=== PATIENT | male | born 1960 | race Caucasian/White ===

== ENCOUNTER 2024-09-12 10:23 | Observation (INO) ==
--- NOTE | 2024-09-12 10:41 | Emergency Department Note ---
HPI - General Adult General Chief complaint: Arrhythmia/Palpitations Stated complaint: RAPID HEARTBEAT Time Seen by Provider: 09/12/24 10:34 Source: patient Mode of arrival: walk-in Limitations: no limitations History of Present Illness HPI narrative: This is a 64 year old male patient that presents to the ER with c/o his heart beating fast. patient states he has a hx of SVT and afib and is on eliquis. patient denies any chest pain, back pain, fever, chills, SOB, abdominal pain, cough, congestion or N/V/D Onset (ago): hour(s) (2) Associated symptoms: Reports denies other symptoms Treatments prior to arrival: Reports none Related Data Home Medications Medication Instructions Recorded Confirmed albuterol sulfate 2.5 mg/0.5 mL 2.5 mg inhalation Q6H PRN 07/13/24 07/20/24 solution for nebulization shortness of breath or wheezing atorvastatin 40 mg tablet 40 mg PO BEDTIME 07/13/24 07/20/24 carbamazepine 200 mg tablet 200 mg PO BID 07/13/24 07/20/24 clopidogrel 75 mg tablet 75 mg PO DAILY 07/13/24 07/20/24 diazepam 5 mg tablet 5 mg PO BID 07/13/24 07/20/24 fluticasone fur. 100 mcg-umeclid 1 inh inhalation DAILY 07/13/24 07/20/24 62.5 mcg-vilant 25 mcg inhalat.powder (Trelegy Ellipta) fluticasone propionate 50 1 spray intranasal Q12H 07/13/24 07/20/24 mcg/actuation nasal spray,suspension ipratropium 0.5 mg-albuterol 3 mg 3 ml inhalation QID PRN shortness 07/13/24 07/20/24 (2.5 mg base)/3 mL nebulization of breath soln olmesartan 20 mg tablet 20 mg PO DAILY 07/13/24 07/20/24 pantoprazole 40 mg tablet,delayed 40 mg PO DAILY 07/13/24 07/20/24 release Previous Rx's Medication Instructions Recorded albuterol sulfate 90 mcg/actuation 2 puff inhalation Q6H PRN 07/13/24 aerosol inhaler (Ventolin HFA) shortness of breath or wheezing #8.5 grams ketorolac 10 mg tablet 10 mg PO Q6H PRN pain #20 tabs 07/13/24 methylprednisolone 4 mg tablets in See Rx Instructions PO .COMPLEX 07/13/24 a dose pack (Medrol (Deyvi)) Inflammation #21 ea apixaban 2.5 mg tablet (Eliquis) 5 mg (2 x 2.5 mg) PO BID SVT #60 07/21/24 tabs diltiazem HCl 120 mg 120 mg PO BID svt/htn #60 caps 07/21/24 capsule,extended release 12 hr Allergies Allergy/AdvReac Type Severity Reaction Status Date / Time No Known Drug Allergies Allergy Verified 09/12/24 10:44 Review of Systems Status of ROS 10 or more systems reviewed and unremark able except as noted in history and below Constitutional Denies: fever, chills, change in weight, fatigue or malaise Eyes Denies: change in vision, blurry vision, blind spots or light sensitivity Ears, nose, mouth, and throat Denies: throat pain, neck pain, throat swelling or difficulty swallowing Cardiovascular Reports: other (rapid heartbeat); Denies: chest pain, palpitations, edema, swelling of feet/ankles or lightheadedness Respiratory Denies: shortness of breath, cough, wheezing, stridor or pain on inspiration Gastrointestinal Denies: abdominal pain, nausea, vomiting, coffee grounds in vomit, heartburn or diarrhea Genitourinary Denies: painful urination, urinary frequency, urinary urgency or blood in urine Musculoskeletal Denies: back pain, neck pain, extremity pain or extremity swelling Integumentary/Breast Denies: rash, itching, redness, skin pain, skin tenderness, skin swelling, change in hair or breast pain Neurological Denies: headache, numbness in extremities or weakness in extremities Psychiatric Denies: anxiety, mood swings, panic attacks, change in sleep pattern or hopelessness Endocrine Denies: excessive urination, excessive thirst, fatigue, cold intolerance or excessive sweating Allergic/Immunologic Denies: hives, throat swelling, tongue swelling or facial swelling [facility] Medical History (Updated 07/29/24 @ 00:00 by ) Paroxysmal atrial fibrillation with RVR New onset atrial fibrillation GERD with esophagitis HLD (hyperlipidemia) Seizure disorder COPD (chronic obstructive pulmonary disease) CAD (coronary artery disease) HTN (hypertension) Surgical History History of heart artery stent Social History Smoking status: never smoker Within the past year, how often did you have a drink containing alcohol: never Score interpretation: A score less than 4 is consistent with normal alcohol consumption. Non-prescribed substance use: denies use Problems where you live: no known problems Highest level of school completed/degree received: high school Life stressor details: Current medical condition Due to disability, difficulty making decisions: No Exam Constitutional: normal general appearance and no apparent distress Vital Signs - 24 hr 09/12/24 10:29 09/12/24 11:00 09/12/24 11:06 Temperature 97.5 F L Pulse Rate 163 H 139 H 66 Respiratory Rate 22 Blood Pressure 137/93 137/93 Pulse Oximetry 90 L Oxygen Delivery Me thod Nasal Cannula Oxygen Flow Rate 3 HENMT: normocephalic, head/scalp atraumatic, hearing grossly normal bilaterally, external ears normal, nasal mucous membranes normal, external nose normal, oral mucous membranes normal and oropharynx normal Eyes: PERRL, EOMs intact bilaterally, conjunctivae normal and no scleral icterus Neck/C-Spine: visual inspection normal and trachea midline Lymph: no lymphadenopathy noted Chest: inspection of chest normal Respiratory: breath sounds equal bilaterally, normal respiratory effort, clear to auscultation bilaterally, no wheezes, no rales, no retractions and no use of accessory muscles Cardiovascular: heart rate abnormal (tachycardic), no gallop, no rub, no murmur, no JVD, no clicks, peripheral pulses 2+ throughout and no additional abnormal heart sounds Gastrointestinal: abdomen normal to inspection, abdomen soft to palpation, nontender to palpation, nontender to percussion, nondistended, normoactive bowel sounds, no hepatosplenomegaly, no masses, no pulsatile mass, no ascites and no hernia Back/Pelvis: spine normal to inspection Extremities: normal to inspection, normal to palpation, no tenderness, full ROM, no joint enlargement and no deformity Neurology: no movement abnormality noted, speech normal, coordination normal, no fasciculations noted and GCS normal Psychiatry: mental status grossly normal, oriented x3, thought process normal and cooperative Skin: skin color normal Course Course Hospital Course: 1117: VSS, HR 74bpm, no s/s of acute distress noted. Due to rapid HR earlier and low sodium level, will admit patient to the hospital Vital Signs Vital signs: Vital Signs Temperature 97.5 F L 09/12/24 10:29 Pulse Rate 163 H 09/12/24 10:29 Respiratory Rate 22 09/12/24 10:29 Blood Pressure 137/93 09/12/24 10:29 Pulse Oximetry 90 L 09/12/24 10:29 Oxygen Delivery Method Nasal Cannula 09/12/24 10:29 Oxygen Flow Rate 3 09/12/24 10:29 Temperature 97.5 F L 09/12/24 10:29 Pulse Rate 66 09/12/24 11:06 Respiratory Rate 22 09/12/24 10:29 Blood Pressure 137/93 09/12/24 11:00 Pulse Oximetry 90 L 09/12/24 10:29 Oxygen Delivery Method Nasal Cannula 09/12/24 10:29 Oxygen Flow Rate 3 09/12/24 10:29 Medical Decision Making Differential Diagnosis Differential Diagnosis: viral illness Medical Records Medical records reviewed: Yes I reviewed the patient's medical records Lab Data Lab results reviewed: Yes I reviewed the patient's lab results Labs: Lab Results 09/12/24 Range/Units 10:35 WBC 6.6 (3.7-9.6) K/uL RBC 4.8 (4.40-5.80) M/uL Hgb 14.3 (14.0-17.4) gm/dL Hct 42.2 (41.3-50.1) % MCV 88.1 (81.9-96.5) fl MCH 29.8 (27.6-33.7) pg MCHC 33.8 (33.0-35.7) g/dl RDW 14.3 (11.0-14.8) % Plt Count 295 (142-355) K/uL MPV 7.3 (6.0-10.4) fl Gran % 66.9 (49.1-73.1) % Lymph % (Auto) 21.1 (17.6-39.05) % [place] % (Auto) 10.8 H (4.5-10.7) % Eos % (Auto) 0.5 (0.0-4.0) % Baso % (Auto) 0.7 (0.0-1.3) Lymph # (Auto) 1.4 (0.8-2.9) [place] # (Auto) 0.7 (0.2-0.8) Eos # (Auto) 0.0 (0.0-0.3) Baso # (Auto) 0.0 (0.0-0.1) Absolute Gran (auto) 4.4 (2.0-6.2) PT 14.7 (12.1-15.0) SECONDS PT Normal Control 13.7 INR 1.10 APTT 34.4 (23.9-36.7) SECONDS D-Dimer 480 (100-600) ng/mL Sodium 123 L (136-145) mmol/L Potassium 4.7 (3.6-5.2) mmol/L Chloride 85.0 L (98-107) mmol/L Carbon Dioxide 29 (21-32) mmol/L Anion Gap 9.0 (4-14) mEq/L BUN 5 L (7-18) mg/dL Creatinine 0.6 (0.6-1.3) mg/dL Estimated GFR 107.8 (>59.9) Glucose 68 L (70-110) mg/dL Calcium 8.6 (8.5-10.1) mg/dL Total Bilirubin 0.46 (0.0-1.0) mg/dL AST 56 H (15-37) U/L ALT 30 (30-65) U/L Alkaline Phosphatase 155 H (50-136) U/L Total Protein 8.1 (6.4-8.2) g/dL Albumin 3.8 (3.4-5.0) g/dL Imaging Data Chest x-ray: Attestation: I have reviewed the pertinent imaging results. ECG Data Attestation: I have reviewed the pertinent ECG results. Discharge Plan Discharge Patient Disposition: Admitted As Observation Condition: Stable Chief Complaint: Arrhythmia/Palpitations Clinical Impression: Paroxysmal SVT (supraventricular tachycardia), HTN (hypertension), COPD (ch ronic obstructive pulmonary disease), Acute hyponatremia Prescriptions: No Action atorvastatin 40 mg tablet 40 mg PO BEDTIME Patient Comments: TAKE ONE TABLET BY MOUTH AT BEDTIME ipratropium-albuterol 0.5 mg-3 mg(2.5 mg base)/3 mL solution for nebulization 3 ml INHALATION QID PRN (Reason: shortness of breath) Patient Comments: INHALE THE CONTENTS OF 1 VIAL VIA NEBULIZER FOUR TIMES PER DAY NEEDED clopidogrel 75 mg tablet 75 mg PO DAILY Patient Comments: TAKE ONE TABLET BY MOUTH EVERY DAY carbamazepine 200 mg tablet 200 mg PO BID Patient Comments: TAKE ONE TABLET BY MOUTH TWICE DAILY pantoprazole 40 mg tablet,delayed release (DR/EC) 40 mg PO DAILY Patient Comments: TAKE ONE TABLET BY MOUTH EVERY DAY fluticasone propionate 50 mcg/actuation spray,suspension 1 spray INTRANASAL Q12H Patient Comments: INHALE ONE SPRAY IN EACH NOSTRIL TWICE DAILY DIRECTED diazepam 5 mg tablet 5 mg PO BID Patient Comments: TAKE ONE TABLET BY MOUTH TWICE DAILY olmesartan 20 mg tablet 20 mg PO DAILY Patient Comments: TAKE ONE TABLET BY MOUTH EVERY DAY albuterol sulfate 2.5 mg/0.5 mL solution for nebulization 2.5 mg inhalation Q6H PRN (Reason: shortness of breath or wheezing) Patient Comments: INHALE THE contents of ONE vial via NEBULIZER EVERY 6 HOURS NEEDED Trelegy Ellipta 100-62.5-25 mcg blister with device 1 inh INHALATION DAILY Patient Comments: INHALE 1 PUFF BY MOUTH EVERY DAY methylprednisolone [Medrol (Deyvi)] 4 mg tablets,dose pack See Rx Instructions .ROUTE .COMPLEX Qty: 21 0RF Rx Instructions: orally per package directions ketorolac 10 mg tablet 10 mg PO Q6H PRN (Reason: pain) Qty: 20 0RF Patient Comments: Should be done with the 5 day therapy Rx Instructions: maximum total duration of 5 days from all oral, intranasal, or parenteral formulations albuterol sulfate [Ventolin HFA] 90 mcg/actuation HFA aerosol inhaler 2 puff inhalation Q6H PRN (Reason: shortness of breath or wheezing) Qty: 8.5 0RF diltiazem HCl 120 mg Capsule,Extended Release 12 Hr 120 mg PO BID Qty: 60 0RF Eliquis 2.5 mg Tablet 5 mg PO BID Qty: 60 0RF Print Language: Albanian Referrals: Luis Fernando Bauman MD [Primary Care Provider] - Time of Disposition: 11:32
[2024-09-12 10:56] LABS: Basophils%(Percent) Auto 0.7 (0.0-1.3); Eosinophils%(Percent) Auto 0.5 % (0.0-4.0); Granulocytes % - Auto 66.9 % (49.1-73.1); Granulocytes#(Absolute)- Auto 4.4 (2.0-6.2); Hematocrit 42.2 % (41.3-50.1); Mean Corpuscular Volume 88.1 fl (81.9-96.5); Monocytes #(Absolute)- Auto 0.7 (0.2-0.8); Monocytes %(Percent)- Auto 10.8 % (4.5-10.7); Platelet Count 295 K/uL (142-355); White Blood Count 6.6 K/uL (3.7-9.6)
[2024-09-12] MEDS: METOPROLOL TARTRATE 5 MG/5 ML VIAL INJ ONE (11:00)
[2024-09-12 11:04] LABS: Potassium 4.7 mmol/L (3.6-5.2)
[2024-09-12 11:14] LABS: INR 1.1
[2024-09-12] MEDS ORDERED: ACETAMINOPHEN 500 MG TABLET PO PRN (12:24)
[2024-09-12] MEDS ORDERED: MAGNESIUM, ALUMINUM HYDROXIDE 30 ML ORAL.SUSP PO PRN (12:24)
[2024-09-12] MEDS ORDERED: bisacodyL 10 MG SUPP.RECT PR PRN (12:24)
[2024-09-12] MEDS: 0.9 % SODIUM CHLORIDE 1000 ML 1,000 ML IV STA (12:31)
[2024-09-12] MEDS: 0.9 % SODIUM CHLORIDE 1000 ML 1,000 ML IV SCH (12:44)
[2024-09-12] MEDS: diazePAM 5 MG TABLET PO ONE (21:21)
[2024-09-12] MEDS: carBAMazepine 200 MG TABLET PO ONE (21:21)
[2024-09-12] MEDS: APIXABAN 2.5 MG TABLET PO ONE (21:21)
[2024-09-13 06:04] LABS: Basophils%(Percent) Auto 0.6 (0.0-1.3); Eosinophils%(Percent) Auto 0.6 % (0.0-4.0); Granulocytes % - Auto 64.3 % (49.1-73.1); Granulocytes#(Absolute)- Auto 3.1 (2.0-6.2); Mean Corpuscular Volume 86.6 fl (81.9-96.5); Monocytes #(Absolute)- Auto 0.5 (0.2-0.8); Monocytes %(Percent)- Auto 9.7 % (4.5-10.7); Platelet Count 218 K/uL (142-355); White Blood Count 4.8 K/uL (3.7-9.6)
[2024-09-13 06:51] LABS: Potassium 4.1 mmol/L (3.6-5.2)
[2024-09-13 08:09] VITALS: BP 138/78; PULSE 64; RESP 18; TEMP 97.9
--- NOTE | 2024-09-13 08:52 | Short Stay Summary ---
H&P: HPI History of Present Illness Chief complaint: HYPONATREMIA, SINUS TACHYCARDIA Narrative: Smoked about an hour before symptoms started. Presented to ER due to concerns about his HR with history of Afib. Had similar presentation earlier this month. Responded well to 1 dose of IV metoprolol. Also found to have hyponatremia, but pt reports baseline sodium is usually low, around 130. Admitted for observation. Review of Systems Status of ROS 10 or more systems reviewed and unremark able except as noted in history and below Constitutional Denies: fever, chills, change in weight, fatigue or malaise Eyes Denies: change in vision, blurry vision, blind spots or light sensitivity Ears, nose, mouth, and throat Denies: throat pain, neck pain, throat swelling or difficulty swallowing Cardiovascular Reports: other (rapid heartbeat); Denies: chest pain, palpitations, edema, swelling of feet/ankles, lightheadedness or shortness of breath with exertion Respiratory Denies: shortness of breath, cough, wheezing, stridor or pain on inspiration Gastrointestinal Denies: abdominal pain, nausea, vomiting, coffee grounds in vomit, heartburn, diarrhea or difficulty swallowing Genitourinary Denies: painful urination, urinary frequency, urinary urgency or blood in urine Musculoskeletal Denies: back pain, neck pain, extremity pain or extremity swelling Integumentary/Breast Denies: rash, itching, redness, skin pain, skin tenderness, skin swelling, change in hair or breast pain Neurological Denies: headache, numbness in extremities or weakness in extremities Psychiatric Denies: anxiety, mood swings, panic attacks, change in sleep pattern or hopelessness Endocrine Denies: excessive urination, excessive thirst, fatigue, cold intolerance or excessive sweating Allergic/Immunologic Denies: hives, throat swelling, tongue swelling, facial swelling or wheezing [facility] Medical History (Updated 07/29/24 @ 00:00 by ) Paroxysmal atrial fibrillation with RVR New onset atrial fibrillation GERD with esophagitis HLD (hyperlipidemia) Seizure disorder COPD (chronic obstructive pulmonary disease) CAD (coronary artery disease) HTN (hypertension) Surgical History History of heart artery stent Social History Smoking status: never smoker Within the past year, how often did you have a drink containing alcohol: never Score interpretation: A score less than 4 is consistent with normal alcohol consumption. Non-prescribed substance use: denies use Problems where you live: no known problems Highest level of school completed/degree received: high school Life stressor details: Current medical condition Due to disability, difficulty making decisions: No Meds Home Medications and Allergies Home Medications Medication Instructions Recorded Confirmed Type albuterol sulfate 2.5 mg/0.5 mL 2.5 mg inhalation Q6H PRN 07/13/24 07/20/24 History solution for nebulization shortness of breath or wheezing albuterol sulfate 90 mcg/actuation 2 puff inhalation Q6H PRN 07/13/24 07/20/24 Rx aerosol inhaler (Ventolin HFA) shortness of breath or wheezing #8.5 grams atorvastatin 40 mg tablet 40 mg PO BEDTIME 07/13/24 07/20/24 History carbamazepine 200 mg tablet 200 mg PO BID 07/13/24 07/20/24 History clopidogrel 75 mg tablet 75 mg PO DAILY 07/13/24 07/20/24 History diazepam 5 mg tablet 5 mg PO BID 07/13/24 07/20/24 History fluticasone fur. 100 mcg-umeclid 1 inh inhalation DAILY 07/13/24 07/20/24 His tory 62.5 mcg-vilant 25 mcg inhalat.powder (Trelegy Ellipta) fluticasone propionate 50 1 spray intranasal Q12H 07/13/24 07/20/24 History mcg/actuation nasal spray,suspension ipratropium 0.5 mg-albuterol 3 mg 3 ml inhalation QID PRN shortness 07/13/24 07/20/24 History (2.5 mg base)/3 mL nebulization of breath soln ketorolac 10 mg tablet 10 mg PO Q6H PRN pain #20 tabs 07/13/24 07/20/24 Rx methylprednisolone 4 mg tablets in See Rx Instructions PO .COMPLEX 07/13/24 07/20/24 Rx a dose pack (Medrol (Deyvi)) Inflammation #21 ea olmesartan 20 mg tablet 20 mg PO DAILY 07/13/24 07/20/24 History pantoprazole 40 mg tablet,delayed 40 mg PO DAILY 07/13/24 07/20/24 History release apixaban 2.5 mg tablet (Eliquis) 5 mg (2 x 2.5 mg) PO BID SVT #60 07/21/24 Rx tabs diltiazem HCl 120 mg 120 mg PO BID svt/htn #60 caps 07/21/24 Rx capsule,extended release 12 hr Allergies Allergy/AdvReac Type Severity Reaction Status Date / Time No Known Drug Allergies Allergy Verified 09/12/24 10:44 Exam Constitutional: normal general appearance, no apparent distress, average body habitus, no limitations and alert Vital Signs - 24 hr 09/12/24 10:29 09/12/24 10:50 09/12/24 11:00 Temperature 97.5 F L Pulse Rate 163 H 133 H 139 H Pulse Rate [Left] Respiratory Rate 22 17 Blood Pressure 137/93 137/93 Blood Pressure [Le ft Arm] Pulse Oximetry 90 L 97 Oxygen Delivery Me thod Nasal Cannula Nasal Cannula Oxygen Flow Rate 3 3 09/12/24 11:03 09/12/24 11:06 09/12/24 11:21 Temperature Pulse Rate 145 H 66 81 Pulse Rate [Left] Respiratory Rate 21 22 Blood Pressure 149/97 140/85 Blood Pressure [Le ft Arm] Pulse Oximetry 97 98 Oxygen Delivery Me thod Nasal Cannula Nasal Cannula Oxygen Flow Rate 3 3 09/12/24 11:48 09/12/24 11:51 09/12/24 12:20 Temperature Pulse Rate 66 66 Pulse Rate [Left] 65 Respiratory Rate 18 20 16 Blood Pressure 134/84 134/84 Blood Pressure [Le ft Arm] Pulse Oximetry 94 L 98 98 Oxygen Delivery Me thod Nasal Cannula Nasal Cannula Oxygen Flow Rate 2 3 09/12/24 12:24 09/12/24 12:39 09/12/24 15:58 Temperature 97.6 F 97.5 F L Pulse Rate Pulse Rate [Left] 65 66 Respiratory Rate 18 18 Blood Pressure Blood Pressure [Le ft Arm] 151/83 130/73 Pulse Oximetry 94 L 94 L 97 Oxygen Delivery Me thod Nasal Cannula Nasal Cannula Nasal Cannula Oxygen Flow Rate 2 3 2 09/12/24 19:37 09/12/24 23:29 09/13/24 03:41 Temperature 97.8 F 98.1 F 98.3 F Pulse Rate Pulse Rate [Left] 70 61 70 Respiratory Rate 16 19 17 Blood Pressure Blood Pressure [Le ft Arm] 124/81 118/73 130/75 Pulse Oximetry 99 97 95 Oxygen Delivery Me thod Nasal Cannula Nasal Cannula Nasal Cannula Oxygen Flow Rate 09/13/24 07:57 09/13/24 08:00 Temperature 97.9 F Pulse Rate Pulse Rate [Left] 64 Respiratory Rate 18 Blood Pressure Blood Pressure [Le ft Arm] 138/78 Pulse Oximetry 96 99 Oxygen Delivery Me thod Nasal Cannula Nasal Cannula Oxygen Flow Rate 2 2 HENMT: normocephalic, head/scalp atraumatic and hearing grossly normal bilaterally Eyes: PERRL, EOMs intact bilaterally and conjunctivae normal Neck/C-Spine: visual inspection normal, trachea midline and cervical full ROM noted Respiratory: breath sounds equal bilaterally, normal respiratory effort and clear to auscultation bilaterally Cardiovascular: normal heart rate noted, regular rhythm noted and no murmur Gastrointestinal: abdomen soft to palpation, nondistended and normoactive bowel sounds Back/Pelvis: thoracic spine ROM normal and lumbar spine ROM normal Neurology: cafe team member II-XII intact, no focal motor deficit noted, speech normal and GCS normal Psychiatry: mental status grossly normal, oriented x3, thought process normal, cooperative, affect normal, psychomotor activity normal and memory normal Assessment and Plan Assessment and Plan (1) Paroxysmal SVT (supraventricular tachycardia): Assessment and Plan: resolved. discharge home. stop smoking anything. Code(s): I47.10 - Supraventricular tachycardia, unspecified (2) HTN (hypertension): Assessment and Plan: stable throughout admission Qualifiers: Hypertension type: primary hypertension Qualified Code(s): I10 - Essential (primary) hypertension Code(s): I10 - Essential (primary) hypertension (3) Seizure disorder: Assessment and Plan: no issues during admission. Code(s): G40.909 - Epilepsy, unspecified, not intractable, without status epilepticus Results Labs Labs: CBC WBC 4.8 K/uL (3.7-9.6) 09/13/24 05:17 RBC 3.9 M/uL (4.40-5.80) L 09/13/24 05:17 Hgb 11.7 gm/dL (14.0-17.4) L 09/13/24 05:17 Hct 34.0 % (41.3-50.1) L 09/13/24 05:17 MCV 86.6 fl (81.9-96.5) 09/13/24 05:17 MCH 29.9 pg (27.6-33.7) 09/13/24 05:17 MCHC 34.5 g/dl (33.0-35.7) 09/13/24 05:17 RDW 13.9 % (11.0-14.8) 09/13/24 05:17 Plt Count 218 K/uL (142-355) 09/13/24 05:17 MPV 7.1 fl (6.0-10.4) 09/13/24 05:17 Gran % 64.3 % (49.1-73.1) 09/13/24 05:17 Lymph % (Auto) 24.8 % (17.6-39.05) 09/13/24 05:17 [place] % (Auto) 9.7 % (4.5-10.7) 09/13/24 05:17 Eos % (Auto) 0.6 % (0.0-4.0) 09/13/24 05:17 Baso % (Auto) 0.6 (0.0-1.3) 09/13/24 05:17 Lymph # (Auto) 1.2 (0.8-2.9) 09/13/24 05:17 [place] # (Auto) 0.5 (0.2-0.8) 09/13/24 05:17 Eos # (Auto) 0.0 (0.0-0.3) 09/13/24 05:17 Baso # (Auto) 0.0 (0.0-0.1) 09/13/24 05:17 Absolute Gran (auto) 3.1 (2.0-6.2) 09/13/24 05:17 BMP Sodium 127 mmol/L (136-145) L 09/13/24 05:17 Potassium 4.1 mmol/L (3.6-5.2) 09/13/24 05:17 Chloride 94.0 mmol/L (98-107) L 09/13/24 05:17 Carbon Dioxide 26 mmol/L (21-32) 09/13/24 05:17 Anion Gap 7.0 mEq/L (4-14) 09/13/24 05:17 BUN 7 mg/dL (7-18) 09/13/24 05:17 Creatinine 0.6 mg/dL (0.6-1.3) 09/13/24 05:17 Estimated GFR 107.8 (>59.9) 09/13/24 05:17 Glucose 84 mg/dL (70-110) 09/13/24 05:17 Calcium 8.1 mg/dL (8.5-10.1) L 09/13/24 05:17 Total Bilirubin 0.26 mg/dL (0.0-1.0) 09/13/24 05:17 AST 35 U/L (15-37) 09/13/24 05:17 ALT 21 U/L (30-65) L 09/13/24 05:17 Alkaline Phosphatase 120 U/L (50-136) 09/13/24 05:17 Total Protein 6.1 g/dL (6.4-8.2) L 09/13/24 05:17 Albumin 2.9 g/dL (3.4-5.0) L 09/13/24 05:17 Liver Function Total Bilirubin 0.26 mg/dL (0.0-1.0) 09/13/24 05:17 AST 35 U/L (15-37) 09/13/24 05:17 ALT 21 U/L (30-65) L 09/13/24 05:17 Alkaline Phosphatase 120 U/L (50-136) 09/13/24 05:17 Total Protein 6.1 g/dL (6.4-8.2) L 09/13/24 05:17 Albumin 2.9 g/dL (3.4-5.0) L 09/13/24 05:17 DS: Providers Provider Date of admission: 09/12/24 11:45 Primary care physician: Luis Fernando Bauman MD Admitting clinician: Praveena Smalls Attending physician on admission: Johann Musa Attending physician on discharge: Johann Musa Discharging clinician: Johann Musa Anticipated date of discharge: 09/13/24 DS: Summary Hospital Course Hospital Course: HR well-controlled overnight with no abnormal cardiac sensations. Sodium improved slightly with no symptoms of dizziness or fatigue. Pt stable for discharge home with instructions to abstain from smoking. Status at Discharge Functional status at discharge: independent ambulation Overall status at discharge: patient is back to baseline Time Spent with Patient Time attestation: Total time spent providing and/or coordinating discharge services: Time spent: less than 30 minutes Discharge Plan Discharge Disposition: Home, Self-Care Condition: Stable Discharge Medications: Continued atorvastatin 40 mg tablet 40 mg PO BEDTIME Patient Comments: TAKE ONE TABLET BY MOUTH AT BEDTIME ipratropium-albuterol 0.5 mg-3 mg(2.5 mg base)/3 mL solution for nebulization 3 ml INHALATION QID PRN (Reason: shortness of breath) Patient Comments: INHALE THE CONTENTS OF 1 VIAL VIA NEBULIZER FOUR TIMES PER DAY NEEDED clopidogrel 75 mg tablet 75 mg PO DAILY Patient Comments: TAKE ONE TABLET BY MOUTH EVERY DAY carbamazepine 200 mg tablet 200 mg PO BID Patient Comments: TAKE ONE TABLET BY MOUTH TWICE DAILY pantoprazole 40 mg tablet,delayed release (DR/EC) 40 mg PO DAILY Patient Comments: TAKE ONE TABLET BY MOUTH EVERY DAY fluticasone propionate 50 mcg/actuation spray,suspension 1 spray INTRANASAL Q12H Patient Comments: INHALE ONE SPRAY IN EACH NOSTRIL TWICE DAILY DIRECTED diazepam 5 mg tablet 5 mg PO BID Patient Comments: TAKE ONE TABLET BY MOUTH TWICE DAILY olmesartan 20 mg tablet 20 mg PO DAILY Patient Comments: TAKE ONE TABLET BY MOUTH EVERY DAY albuterol sulfate 2.5 mg/0.5 mL solution for nebulization 2.5 mg inhalation Q6H PRN (Reason: shortness of breath or wheezing) Patient Comments: INHALE THE contents of ONE vial via NEBULIZER EVERY 6 HOURS NEEDED Trelegy Ellipta 100-62.5-25 mcg blister with device 1 inh INHALATION DAILY Patient Comments: INHALE 1 PUFF BY MOUTH EVERY DAY methylprednisolone [Medrol (Deyvi)] 4 mg tablets,dose pack See Rx Instructions .ROUTE .COMPLEX Qty: 21 0RF Rx Instructions: orally per package directions ketorolac 10 mg tablet 10 mg PO Q6H PRN (Reason: pain) Qty: 20 0RF Patient Comments: Should be done with the 5 day therapy Rx Instructions: maximum total duration of 5 days from all oral, intranasal, or parenteral formulations albuterol sulfate [Ventolin HFA] 90 mcg/actuation HFA aerosol inhaler 2 puff inhalation Q6H PRN (Reason: shortness of breath or wheezing) Qty: 8.5 0RF diltiazem HCl 120 mg Capsule,Extended Release 12 Hr 120 mg PO BID Qty: 60 0RF Eliquis 2.5 mg Tablet 5 mg PO BID Qty: 60 0RF Discharge Orders: Discharge Order (Routine); Ordered 09/13/24 Ordered By: Johann Musa Activity: resume usual activities as tolerated Diet: advance to your usual diet Interventions: Discharge Assessment Last Done: 09/13/24 09:08 MED/SURG & ICU Observation Charge Sheet Last Done: 09/13/24 06:30 Patient Instructions: Hyponatremia (GEN), COPD (Chronic Obstructive Pulmonary Disease) (GEN), Cannabis Use Disorder (GEN) Forms: Portal/Health Info Access Inst Follow-Ups: Luis Fernando Bauman MD [Primary Care Provider] - Discharge Date/Time: 09/13/24 09:20
== END 2024-09-13 09:20 | disposition home or self-care (01) ==
LOC: ED 10:23 → MS 10:23
PROVIDERS: ADMIT Family Medicine; ATTEND Family Medicine
DX: G40.909 Epilepsy, unspecified, not intractable, without status epilepticus; I10 Essential (primary) hypertension; E87.1 Hypo-osmolality and hyponatremia; J44.9 Chronic obstructive pulmonary disease, unspecified; I47.10 Supraventricular tachycardia, unspecified; I48.91 Unspecified atrial fibrillation